=== PATIENT | female | born 1990 | race Two or more races ===

== ENCOUNTER 2024-08-15 11:15 | Emergency (ER) | payer OTHER ==
[~2024-08-15] VITALS: Ht 172.7 cm; Wt 79.4 kg
[2024-08-15 12:44] LABS: BASO % 0.3 % (0.1-1.2); EOS # 0.47 (0.04-0.54); EOS % 4.5 % (0.7-7.0); HEMATOCRIT 33.8 % (34.1-44.9); HEMOGLOBIN 11.7 g/dL (11.2-15.7); LYMPH # 1.77 (1.18-3.74); LYMPH % 16.8 % (19.3-53.1); MEAN CORPUSCULAR HEMOGLOBIN 28.7 pg (25.6-32.2); MONO # 0.52 (0.24-0.82); MONO % 4.9 % (4.7-12.5); NEUT # 7.69 (1.56-6.13); NEUT % 73.2 % (34.0-71.1); PLATELET COUNT 282 K/uL (163-369); RED BLOOD COUNT 4.07 M/uL (3.93-5.22); RED CELL DISTRIBUTION WIDTH 13.2 % (11.6-14.4)
[2024-08-15 13:52] LABS: PH,URINE 6.5 (5.0-8.0); URINE APPEARANCE Clear; URINE BILIRRUBIN Negative (NEGATIVE); URINE BLOOD Moderate; URINE COLOR Yellow; URINE GLUCOSE Negative (NEGATIVE); URINE KETONE Negative (NEGATIVE); URINE LEUKOCYTE Negative; URINE NITRATE Negative; URINE PROTEIN Negative (NEGATIVE); URINE UROBILINOGEN 0.2 E.U./dl
[2024-08-15 13:56] LABS: URINE BACTERIA 264.2 uL (0.0-1933); URINE RBC 9.2 uL (0.0-20.8); URINE WBC 3.7 uL (0.0-23.2)
== END 2024-08-15 14:49 | disposition home or self-care (01) ==
LOC: ER 11:25
PROVIDERS: General Practice
DX: O20.8 Other hemorrhage in early pregnancy (principal); Z3A.16 16 weeks gestation of pregnancy